=== PATIENT | female | born 1985 | race Caucasian/White ===

== ENCOUNTER 2021-03-31 19:48 | Emergency (ER) | payer BC ==
[2021-03-31] MEDS ORDERED: Sodium Chloride 0.9% 1,000 ML IV ONE (20:11)
[2021-03-31] MEDS ORDERED: Ketorolac 30 MG/ML SDV IVPUSH ONE (20:11)
[2021-03-31] MEDS ORDERED: Sodium Chloride 0.9% 10 ML Syringe FLUSH PRN (20:11)
[2021-03-31] MEDS ORDERED: Ketorolac 30 MG/ML SDV IM ONE (20:11)
[2021-03-31] MEDS ORDERED: Ondansetron 4 MG/2 ML SDV IVPUSH ONE (20:13)
[2021-03-31] MEDS ORDERED: Morphine 2 MG/ML SYRINGE IVPUSH ONE (20:15)
--- NOTE | 2021-03-31 20:17 | EDM.PDOC ---
ED HPI GENERAL MEDICAL PROBLEM - General Chief Complaint: General Stated Complaint: abdominal pain Time Seen by Provider: 03/31/21 20:03 Source of Information: Reports: Patient, Family - History of Present Illness INITIAL COMMENTS - FREE TEXT/NARRATIVE: Trinity, 35-year-old female, presents along with her with left flank left pelvic pain becoming severe in nature. They are here from the [place] [facility] the [facility] for a today. She acknowledges that she is likely on the dry side as she has not been drinking as much water as usual. She has an 8-month-old infant that she is still breast-feeding slowing the process now down to twice daily supplementing with formula as she is trying to wean off the breast-feeding as there is an attempt for another . She has not been on control and is attempting since activity was resumed after the . 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 Nausea has persisted with this. She denies any burning or discomfort with urination. No other complaints or concerns are expressed. 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 Para: 1 - Past Surgical History Female Surgical History: Reports: Section (Secondary of breech presentation at term.) Social & Family History - Family History Family Medical History: No Pertinent Family History - Tobacco Use Tobacco Use Within Last Twelve Months: No - Alcohol Use Alcohol Use History: Yes Alcohol Use Frequency: Socially ED ROS GENERAL - Review of Systems Review Of Systems: See Below Constitutional: Reports: No Symptoms HEENT: Reports: No Symptoms Respiratory: Reports: No Symptoms Cardiovascular: Reports: No Symptoms Endocrine: Reports: No Symptoms GI/Abdominal: Reports: Abdominal Pain, Anorexia, Nausea : Reports: Flank Pain. Denies: Discharge, Dysuria, Frequency, Hematuria, Incontinence Musculoskeletal: Reports: No Symptoms Skin: Reports: No Symptoms Neurological: Reports: No Symptoms Psychiatric: Reports: No Symptoms Hematologic/Lymphatic: Reports: No Symptoms Immunologic: Reports: No Symptoms ED EXAM, GENERAL - Physical Exam Exam: See Below Free Text/Narrative:: Alert oriented in painful distress shifting about on the cot unable to find a position of comfort. No cyanosis nor pallor is noted. HEENT is negative to discharge nor deformity. [place] moist mucous membranes. Thorax is clear with no wheezes nor crackles. Cardiac is regular with no murmur appreciated. Abdomen is soft there is tenderness in the left lower quadrant and a varying position as she cannot lie still and is shifting as if with renal colic. There is flank pain to percussion on the left and she states she feels it going downward. Secondary of potential that needs to be ruled out prior to further studies and ketorolac treatment. We do discuss that pending on the complete work-up she may need to pump and dump for 24 hours for the insurance of safety to her nursing child. Course - Vital Signs Last Recorded V/S: Last Vital Signs Temp 97.4 F 03/31/21 19:53 Pulse 44 L 03/31/21 19:53 Resp 20 03/31/21 19:53 BP 131/83 03/31/21 19:53 Pulse Ox 99 03/31/21 19:53 - Orders/Labs/Meds Orders: Active Orders 24 hr Category Date Time Status Peripheral IV Care [RC] . DIRECTED Care 03/31/21 20:11 Ordered Abdomen Pelvis wo Cont [CT] Stat Exams 03/31/21 20:39 Ordered Sodium Chloride 0.9% [Saline Flush] Med 03/31/21 20:11 Ordered 10 ml FLUSH Q8HR PRN Peripheral IV Insertion Adult [OM.PC] Stat Oth 03/31/21 20:11 Ordered Medication Orders Sodium Chloride (Sodium Chloride 0.9% 10 Ml Syringe) 10 ml FLUSH Q8HR PRN PRN Reason: keep vein open Last Admin: 03/31/21 20:10 Dose: 10 ml Documented by: JUAN Labs: Laboratory Tests 03/31/21 03/31/21 03/31/21 Range/Units 20:10 20:10 20:10 WBC 15.37 H (5.00-10.00) 10^3/uL RBC 4.64 (3.80-5.50) 10^6/uL Hgb 13.8 (12.0-16.0) g/dL Hct 42.2 (37.0-47.0) % MCV 90.9 (82.0-92.0) fL MCH 29.7 (27.0-31.0) pg MCHC 32.7 (32.0-36.0) g/dL RDW 13.1 (11.5-14.5) % Plt Count 344 (150-400) 10^3/uL MPV 9.0 (7.4-10.4) fL Immature Gran % (Auto) 0.2 (0.0-5.0) % Neut % (Auto) 72.3 H (50.0-70.0) % Lymph % (Auto) 20.8 (20.0-40.0) % [place] % (Auto) 5.5 (2.0-8.0) % Eos % (Auto) 0.8 L (1.0-3.0) % Baso % (Auto) 0.4 (0.0-1.0) % Neut # (Auto) 11.12 H (2.50-7.00) 10^3/uL Lymph # (Auto) 3.20 (1.00-4.00) 10^3/uL [place] # (Auto) 0.84 H (0.10-0.80) 10^3/uL Eos # (Auto) 0.12 (0.10-0.30) 10^3/uL Baso # (Auto) 0.06 (0.00-0.10) 10^3/uL Immature Gran # (Auto) 0.03 (0.00-0.50) 10^3/uL Sodium 140 (136-145) mmol/L Potassium 3.4 L (3.5-5.1) mmol/L Chloride 103 (98-107) mmol/L Carbon Dioxide 23.0 (21.0-32.0) mmol/L Anion Gap 17.4 H (5-15) mmol/L BUN 12 (7-18) mg/dL Creatinine 0.63 (0.51-1.17) mg/dL Est Cr Clr Drug Dosing TNP Estimated GFR (MDRD) > 60 mL/min Glucose 109 (70-140) mg/dL Calcium 8.7 (8.7-10.3) mg/dL Total Bilirubin 0.4 (0.2-1.0) mg/dL AST 14 L (15-37) U/L ALT 16 (14-63) U/L Alkaline Phosphatase 113 (46-116) U/L Total Protein 7.5 (6.4-8.2) g/dL Albumin 3.91 (3.40-5.00) g/dL HCG, Qual Negative (NEGATIVE) Specimen Type Urincc Urine Color Yellow (YELLOW) Urine Appearance Clear (CLEAR) Urine pH 5.0 (5.0-9.0) Ur Specific [place] >= 1.030 (1.005-1.030) Urine Protein Negative (NEGATIVE) mg/dL Urine Glucose (UA) Negative (NEGATIVE) mg/dL Urine Ketones Negative (NEGATIVE) mg/dL Urine Occult Blood Large H (NEGATIVE) Urine Nitrite Negative (NEGATIVE) Urine Bilirubin Negative (NEGATIVE) Urine Urobilinogen 0.2 (0.2-1.0) E.U./dL Ur Leukocyte Esterase Negative (NEGATIVE) Urine RBC 10-20 H (0-5) /HPF Urine WBC 5-10 H (0-5) /HPF Ur Epithelial Cells Few /LPF Urine Bacteria Rare (NONE TO FEW) /HPF Meds: Medications Generic Name Dose Route Start Last Admin Trade Name Adama PRN Reason Stop Dose Admin Sodium Chloride 10 ml 03/31/21 20:11 03/31/21 20:10 Sodium Chloride 0.9% 10 Ml Syringe FLUSH 10 ml Q8HR PRN Administration keep vein open Discontinued Medications Generic Name Dose Route Start Last Admin Trade Name Adama PRN Reason Stop Dose Admin Sodium Chloride 1,000 mls @ 999 mls/hr 03/31/21 20:11 03/31/21 20:32 Normal Saline IV 03/31/21 21:11 999 mls/hr .BOLUS ONE Administration Ketorolac Tromethamine 30 mg 03/31/21 20:11 03/31/21 20:41 Ketorolac 30 Mg/Ml Sdv IVPUSH 03/31/21 20:12 30 mg ONETIME ONE Administration Ketorolac Tromethamine 30 mg 03/31/21 20:11 03/31/21 20:39 Ketorolac 30 Mg/Ml Sdv IM 03/31/21 20:12 30 mg ONETIME ONE Administration Ketorolac Tromethamine 10 mg 03/31/21 21:55 03/31/21 22:00 Ketorolac 10 Mg Tab PO 03/31/21 21:56 10 mg ONETIME ONE Administration Morphine Sulfate 2 mg 03/31/21 20:15 03/31/21 20:25 Morphine 2 Mg/Ml Syringe IVPUSH 03/31/21 20:16 2 mg ONETIME ONE Administration Ondansetron HCl 8 mg 03/31/21 20:13 03/31/21 20:16 Ondansetron 4 Mg/2 Ml Sdv IVPUSH 03/31/21 20:14 8 mg ONETIME ONE Administration Tamsulosin HCl 0.4 mg 03/31/21 21:49 03/31/21 21:52 Tamsulosin 0.4 Mg Cap.Er PO 03/31/21 21:50 0.4 mg ONETIME ONE Administration Tamsulosin HCl 0.4 mg 03/31/21 21:54 03/31/21 22:00 Tamsulosin 0.4 Mg Cap.Er PO 03/31/21 21:55 0.4 mg ONETIME ONE Administration - Re-Assessments/Exams Free Text/Narrative Re-Assessment/Exam: 03/31/21 21:04 Almost pain-free at this time when going for CT. Nausea completely resolved after the Zofran. Departure - Departure Time of Disposition: 22:00 Disposition: Home, Self-Care 01 Condition: Good Clinical Impression: Renal lithiasis, Hypokalemia, Flank pain, Nausea, Hematuria - Discharge Information Prescriptions: Tamsulosin HCl 0.4 mg PO QAM 10 Days #10 capsule Ketorolac [Toradol] 10 mg PO Q8H PRN 4 Days #12 tab PRN Reason: Abdominal Pain Instructions: Renal Colic, [id number], Hypokalemia, Kidney Stones, [id number] Referrals: Zakia aMrtinez MD [Primary Care Provider] - Forms: ED Department Discharge Additional Instructions: You need to increase and maintain a higher fluid intake to push this kidney stone the remainder of the way into your bladder. You need to supplement your potassium as that may be what is causing your muscle cramping, as well as consideration for increasing magnesium. I would not recommend any additional calcium supplements at this time as that could increase the risk of forming renal stones. You will need to pump and dump your breast milk until you have concluded taking the medications after the stone passes. 24 hours of clearance should be given once you have stopped taking the medication. Follow-up with your clinic as needed or by the end of next week if you have not passed the stone naturally. The ketorolac 10 mg tablet you can take in the morning prior to leaving for your trip home and a prescription is with you to fill it the first pharmacy you find available on Friday. Tamsulosin or Flomax you can take in the morning as well and have a prescription to get that for the next 10 days until you pass the stone. Make sure you maintain good fluid hydration intake and urinate frequently as needed to avoid bladder distention. Sepsis Event Note (ED) - Focused Exam Vital Signs: Vital Signs Temp Pulse Resp BP Pulse Ox 03/31/21 19:53 97.4 F 44 L 20 131/83 99 - Problem List & Annotations (1) Flank pain SNOMED Code(s): 324793223 Code(s): R10.9 - UNSPECIFIED ABDOMINAL PAIN Status: Acute Priority: High (2) Abdominal pain SNOMED Code(s): 80200890 Code(s): R10.9 - UNSPECIFIED ABDOMINAL PAIN Status: Acute Priority: High Qualifiers: Abdominal location: left lower quadrant Qualified Code(s): R10.32 - Left lower quadrant pain (3) Nausea SNOMED Code(s): 375758426 Code(s): R11.0 - NAUSEA Status: Acute Priority: High (4) Hematuria SNOMED Code(s): 43795634 Code(s): R31.9 - HEMATURIA, UNSPECIFIED Status: Acute Qualifiers: Hematuria type: other microscopic Qualified Code(s): R31.29 - Other chuckie roscopic hematuria; R31.2 - Other microscopic hematuria (5) Renal lithiasis SNOMED Code(s): 75034086 Code(s): N20.0 - CALCULUS OF KIDNEY Status: Acute Priority: High (6) Hypokalemia SNOMED Code(s): 98418227 Code(s): E87.6 - HYPOKALEMIA Status: Acute Priority: High - Problem List Review Problem List Initiated/Reviewed/Updated: Yes - My Orders Last 24 Hours: My Active Orders 03/31/21 20:11 Peripheral IV Care [RC] . DIRECTED Sodium Chloride 0.9% [Saline Flush] 10 ml FLUSH Q8HR PRN Peripheral IV Insertion Adult [OM.PC] Stat 03/31/21 20:39 Abdomen Pelvis wo Cont [CT] Stat - Assessment/Plan Last 24 Hours: My Active Orders 03/31/21 20:11 Peripheral IV Care [RC] . DIRECTED Sodium Chloride 0.9% [Saline Flush] 10 ml FLUSH Q8HR PRN Peripheral IV Insertion Adult [OM.PC] Stat 03/31/21 20:39 Abdomen Pelvis wo Cont [CT] Stat Plan: You need to increase and maintain a higher fluid intake to push this kidney stone the remainder of the way into your bladder. You need to supplement your potassium as that may be what is causing your muscle cramping, as well as consideration for increasing magnesium. I would not recommend any additional calcium supplements at this time as that could increase the risk of forming renal stones. You will need to pump and dump your breast milk until you have concluded taking the medications after the stone passes. 24 hours of clearance should be given once you have stopped taking the medication. Follow-up with your clinic as needed or by the end of next week if you have not passed the stone naturally. The ketorolac 10 mg tablet you can take in the morning prior to leaving for your trip home and a prescription is with you to fill it the first pharmacy you find available on Friday. Tamsulosin or Flomax you can take in the morning as well and have a prescription to get that for the next 10 days until you pass the stone. Make sure you maintain good fluid hydration intake and urinate frequently as needed to avoid bladder distention.
[2021-03-31 20:42] LABS: ANION GAP 17.4 mmol/L (5-15); CHLORIDE,CL 103 mmol/L (98-107); SODIUM,NA 140 mmol/L (136-145)
[2021-03-31] MEDS ORDERED: Tamsulosin 0.4 MG Cap.ER PO ONE ×2 (21:49→21:54)
[2021-03-31] MEDS ORDERED: Ketorolac 10 MG Tab PO ONE (21:55)
--- NOTE | 2021-04-01 09:38 | CT ---
[id number] CT/CT Abdomen Pelvis WO IV EXAM: CT Abdomen Pelvis WO IV CLINICAL DATA: RENAL COLIC LEFT SIDE, HEMATURIA, LEFT FLANK PAIN COMPARISON STUDY: None. FINDINGS: Lung bases are clear. There is a 4 mm calculus within the distal left ureter resulting in mild left hydroureteronephrosis. The liver, spleen, pancreas, adrenal glands and right kidney are unremarkable. No bowel obstruction or inflammation. Colonic diverticulosis without evidence of acute diverticulitis. No lymphadenopathy, free fluid, or pneumoperitoneum. No fracture or osseous lesion. IMPRESSION: A 4 mm stone within the distal 3rd of the left ureter resulting in mild left hydroureteronephrosis. Rj Her DO 04/01/21 0937 Thank you for allowing us to participate in the care of your patient.
== END 2021-03-31 22:14 | disposition home or self-care (01) ==
LOC: KA.ED 19:48
DX: N13.2 Hydronephrosis with renal and ureteral calculous obstruction (principal); E87.6 Hypokalemia; R11.0 Nausea; R31.9 Hematuria, unspecified
CPT/HCPCS: 74176; 80053; 81001; 84703; 85025; 96372; 96374; 96375; 99284; 99284-25; A9270-GY; J1885; J2270; J2405; J7030